=== PATIENT | female | born 1970 | race Caucasian/White ===

== ENCOUNTER → 2022-12-24 13:44 | Outpatient (CLI) | payer OTHER, SELFPAY ==
--- NOTE | ~2022-12-24 | US_ITS ---
EXAMINATION: US venous doppler LE RT DATE: 12/24/2022 14:08 INDICATION: Right lower limb pain and swelling TECHNIQUE: Grayscale ultrasound images without and with compression and Doppler ultrasound images of the right lower extremity veins were obtained. COMPARISON: None. FINDINGS: The visualized portions of right common femoral vein, profunda (deep) femoral vein, femoral vein, pop liteal vein, peroneal trunk, posterior tibial veins, peroneal veins, gastrocnemius vein and greater s aphenous vein outflow are patent. There is focal soft tissue swelling and increased echogenicity of t he subcutaneous fat consistent with edema surrounding a 2.5 x 0.8 cm anechoic fluid collection most c onsistent with a posttraumatic hematoma. IMPRESSION: 1. No deep venous thrombosis in the right lower limb. 2. Soft tissue swelling surrounding a 2.5 x 0.8 cm likely hematoma in the subcutaneous fat at the sit e of a reported horse injury. Reviewed, dictated and finalized at location A. IMPRESSION: 1. No deep venous thrombosis in the right lower limb. 2. Soft tissue swelling surrounding a 2.5 x 0.8 cm likely hematoma in the subcu taneous fat at the site of a reported horse injury.
== END ==
PROVIDERS: PCP Internal Medicine; Visit Provider Student in an Organized Health Care Education/Training Program
DX: M79.89 Other specified soft tissue disorders (principal); V80.010A Animal-rider injured by fall from or being thrown from horse in noncollision accident, initial encounter
CPT/HCPCS: 93971